=== PATIENT | female | born 1960 | race Caucasian/White ===

== ENCOUNTER 2018-03-07 22:22 | Emergency (ER) | payer BC ==
[~2018-03-07] VITALS: Ht 160 cm; Wt 66.2 kg
[2018-03-07 22:24] VITALS: BP 90/53
[2018-03-07] MEDS ORDERED: LIDOCAINE-MPF 1%, 2ML ONE (22:35)
[2018-03-07] MEDS ORDERED: BACITRACIN ZINC OINT 500U/GM, 0.9 GM ONE (22:50)
[2018-03-07] MEDS ORDERED: HYDROcodone/APAP 5/325 TABLET PO STA (22:54)
[2018-03-07] MEDS ORDERED: HYDROcodone/APAP 5/325 TABLET ONE (23:12)
== END 2018-03-07 23:18 | disposition home or self-care (01) ==
LOC: ED 23:10
DX: S01.81XA Laceration without foreign body of other part of head, initial encounter (principal); S80.212A Abrasion, left knee, initial encounter; I10 Essential (primary) hypertension; W18.39XA Other fall on same level, initial encounter; Y93.89 Activity, other specified; Y92.520 Airport as the place of occurrence of the external cause; Y99.8 Other external cause status
CPT/HCPCS: 12011; 99283